=== PATIENT | male | born 1990 | race Caucasian/White ===

== ENCOUNTER 2018-06-30 19:15 | Emergency (ER) | payer MEDICAID ==
[~2018-06-30] VITALS: Ht 180.3 cm; Wt 84.5 kg
[~2018-06-30 19:15] MED LIST: LORA-269 PO; OXCA600T25 PO
[2018-06-30 19:18] VITALS: BP 135/82
[2018-06-30] MEDS ORDERED: OXCA600T PO (19:48)
== END 2018-06-30 19:54 | disposition home or self-care (01) ==
LOC: ER 19:15
DX: R56.9 Unspecified convulsions (principal); Z76.0 Encounter for issue of repeat prescription; Z79.899 Other long term (current) drug therapy
CPT/HCPCS: 99283

== ENCOUNTER 2020-08-26 18:07 | Emergency (ER) | payer MEDICAID ==
[~2020-08-26] VITALS: Ht 180.3 cm; Wt 81.8 kg
[~2020-08-26 18:07] MED LIST changes: +OXCA600T9 PO
[2020-08-26] MEDS ORDERED: bacitracin 15gm ointment TP ONE (19:05)
[2020-08-26] MEDS ORDERED: ondansetron/PF 4mg/2ml inj IV ONE (19:05)
[2020-08-26] MEDS ORDERED: morphine 4 MG/ML inj SYRINge IV ONE (19:05)
[2020-08-26] MEDS ORDERED: LIDOcaine 1% W/epiNEPHrine 1:200,000 10ml vial IJ ONE (19:05)
[2020-08-26] MEDS ORDERED: TETanus/Pertussis (Acell)/Diphther VAC/PF (Tdap-Adult) 0.5ml syringe IMVAC ONE (19:05)
--- NOTE | 2020-08-26 20:52 | NUR ---
MISAEL Kevin at bedside to numb right zhu lac. Now getting irrigated. Pt to have gait test once lac is repaired and then likely dc.
--- NOTE | 2020-08-26 21:16 | NUR ---
Pt's jeans were cut off due to the injuries. Pt given a pair of shorts to wear for gait test and discharge to home.
[2020-08-26 21:25] VITALS: BP 141/96
== END 2020-08-26 21:57 | disposition home or self-care (01) ==
LOC: ER 18:07
DX: S81.811A Laceration without foreign body, right lower leg, initial encounter (principal); S40.811A Abrasion of right upper arm, initial encounter; S80.812A Abrasion, left lower leg, initial encounter; M79.605 Pain in left leg; M79.604 Pain in right leg; Z86.69 Personal history of other diseases of the nervous system and sense organs; Z72.89 Other problems related to lifestyle; Z79.899 Other long term (current) drug therapy; V89.2XXA Person injured in unspecified motor-vehicle accident, traffic, initial encounter; Y93.89 Activity, other specified; Y92.89 Other specified places as the place of occurrence of the external cause; Y99.8 Other external cause status
CPT/HCPCS: 12002; 73552; 73564; 73590; 73610; 73630; 90471; 90715; 96374; 96375; 99284; J2270; J2405

== ENCOUNTER 2020-09-03 18:00 | Emergency (ER) | payer MEDICAID ==
[~2020-09-03] VITALS: Ht 180.3 cm; Wt 81.8 kg
[2020-09-03 18:12] VITALS: BP 135/72
== END 2020-09-03 19:37 | disposition home or self-care (01) ==
LOC: ER 18:01
DX: S81.811D Laceration without foreign body, right lower leg, subsequent encounter (principal); Z48.02 Encounter for removal of sutures; Z86.69 Personal history of other diseases of the nervous system and sense organs; Z72.89 Other problems related to lifestyle; Z79.899 Other long term (current) drug therapy; V23.4XXD Motorcycle driver injured in collision with car, pick-up truck or van in traffic accident, subsequent encounter
CPT/HCPCS: 99281

== ENCOUNTER 2024-04-15 09:01 | Outpatient (CLI) | payer OTHER | END 2024-04-15 23:59 | disposition home or self-care (01) | LOC: MRI 09:01 | PROVIDERS: ATTEND Family Medicine | DX: M51.17 Intervertebral disc disorders with radiculopathy, lumbosacral region (principal); M48.061 Spinal stenosis, lumbar region without neurogenic claudication; M47.26 Other spondylosis with radiculopathy, lumbar region; M51.27 Other intervertebral disc displacement, lumbosacral region; M62.830 Muscle spasm of back | CPT/HCPCS: 72148 ==

== ENCOUNTER 2024-07-09 21:12 | Emergency (ER) | payer MEDICAID, OTHER ==
[~2024-07-09] VITALS: Ht 180.3 cm; Wt 90.9 kg
[2024-07-09 21:24] VITALS: TEMP 98.1
[2024-07-09 22:20] VITALS: BP 128/82; PULSE 70; RESP 16; O2SAT 99
== END 2024-07-09 22:21 | disposition home or self-care (01) ==
LOC: ER 21:13
DX: S61.432A Puncture wound without foreign body of left hand, initial encounter (principal); Z79.899 Other long term (current) drug therapy; W45.8XXA Other foreign body or object entering through skin, initial encounter; Y93.89 Activity, other specified; Y92.89 Other specified places as the place of occurrence of the external cause; Y99.8 Other external cause status
CPT/HCPCS: 12001; 99282